=== PATIENT | female | born 1970 | race African-American/Black ===

== ENCOUNTER 2024-05-24 21:14 | Emergency (ER) | payer SELFPAY ==
[2024-05-24 21:17] VITALS: BP 128/71; PULSE 98; RESP 20; TEMP 37.2; O2SAT 97; BMI 31.5
== END 2024-05-25 00:59 | disposition left against medical advice (07) ==
PROVIDERS: Emergency Provider Emergency Medicine
DX: T63.301A Toxic effect of unspecified spider venom, accidental (unintentional), initial encounter (principal); Y92.9 Unspecified place or not applicable; Z53.21 Procedure and treatment not carried out due to patient leaving prior to being seen by health care provider
CPT/HCPCS: 99281

== ENCOUNTER 2024-10-05 17:58 | Emergency (ER) | payer MEDICAID, SELFPAY ==
[2024-10-05 18:19] VITALS: BP 151/101; PULSE 81; RESP 18; TEMP 36.9; O2SAT 98; BMI 30.4
--- NOTE | 2024-10-05 18:19 | ED_ITS ---
HPI - Dental/Oral General Chief complaint: Dental/Oral Stated complaint: ?Dental abscess Time Seen by Provider: 10/05/24 18:27 Source: patient Mode of arrival: ambulatory Limitations: no limitations History of Present Illness ED Provider: Jennifer Daly PA-C HPI Narrative: 54-year-old female presents the ER for evaluation of right upper dental pain and swelling that has been worsening for the last 4 or 5 days. Pain improves it is ibuprofen, she endorses taking more than she should have. She reports that swelling in the right side of her face has worsened. She has no local dental care, no health insurance. She bought antibiotics and a bow day on the street and took 2 doses. she is able to open and close her mouth without issue. no neck swelling. no fevers. MD Complaint: tooth pain Location: Tooth # (1&2) Onset (ago): day(s) Duration: constant Severity: moderate Relieving factors: NSAIDs Exacerbating factors: chewing Context: history of dental caries and poor dental care Associated symptoms: gum swelling and ear pain Treatment prior to arrival: oral analgesic Related Data Previous Rx's ?Medication ?Instructions ?Recorded amoxicillin 875 mg-potassium 1 tab PO BID #20 tabs 10/05/24 clavulanate 125 mg tablet tramadol 50 mg tablet 50 mg PO Q8H PRN severe pain 10/05/24 (scale score 7-10) #6 tabs Allergies Allergy/AdvReac Type Severity Reaction Status Date / Time No Known Allergies Allergy Verified 10/05/24 18:21 Review of Systems Review of Systems: Yes all other systems are reviewed and are negative PMFSH Social History Social History Advance Directives: No Advance Directives Information Provided: Yes Do you have a plan to hurt others: No Plan Physical Exam Vital Signs: Vital Signs: Last Vital Signs Temp 98.4 F 10/05/24 18:56 Pulse 81 10/05/24 18:56 Resp 18 10/05/24 18:56 BP 151/101 H 10/05/24 18:56 Pulse Ox 98 10/05/24 18:56 O2 Del Method Room Air 10/05/24 18:56 BMI result Body Mass Index 30.4 Appearance: Alert. Oriented X3. No acute distress. HEENT: mild right sided facial swelling in the maxillary area. no trismus. poor dentition. few missing teeth. right upper molars are tender to touch with associated gingival discoloration and tenderness, no fluctuance CVS: Normal heart rate and rhythm. Pulses normal. Respiratory: No respiratory distress. Skin: Skin warm and dry. Normal skin color. Normal skin turgor. No rashes. Extremities: normal inspection, no gross joint swelling Neuro: Oriented X 3. grossly normal, nonfocal Medical Decision Making Medical Decision Making MDM Narrative: 54 yo female presenting with right upper dental pain for the last several days. no trauma. no drainable abscess on exam will start augmentin and pain control. expressed to patient the importance of dental follow up. we also discussed return precautions. stable for d/c home Differential Diagnosis Differential Diagnoses: The differential diagnosis associated with the presentat ion includes toothache, dental abscess, dental decay, dental caries, ludwigs angina Tests considered The following testing was considered but not selected: considered CT scan of the facial bones Prescription Management I considered prescription management with: Pain Medication and Antibiotic Chronic Conditions Patient?s care impacted by: Other (poor dental care) Social Determinants Patient?s care significantly limited by Social Determinants of Health including: Other Social Determinant of Health (no health insurance) Critical Care Time Critical Care Time Critical Care Time: No Discharge Plan Discharge Clinical Impression: Toothache Patient Disposition: Home, Self-Care Instructions: Toothache (ED) Additional Instructions: Take the prescribed antibiotics as directed, complete the entire course and do not miss any doses Continue tylenol around the clock for pain Take the prescribed narcotic pain medication as needed for severe pain only. Do not drive after taking this medication. Use cold compresses on the face as needed for pain and swelling You can try over the counter Orajel or clove oil to the area to help with pain You can also try taking a hot black tea bag to the area, this will help with inflammation Follow up with your dentist as soon as possible If you develop new or worsening symptoms call 911 or come back to the ER for further evaluation. Call or visit any of the clinics below to establish with a dentist: [facility] [address] [place] [address] [facility] [address] [place] [address] [facility] [address] [facility], [address] Jani Garcia [address] [place] [address] [facility] [id number] [facility] [address] [place], [place] [id number] [place] [address] [place] [address] Prescriptions: New amoxicillin-pot clavulanate 875-125 mg tablet 1 tab PO BID Qty: 20 0RF tramadol 50 mg tablet 50 mg PO Q8H PRN (Reason: severe pain (scale score 7-10)) Qty: 6 0RF Stand Alone Forms: Work/School Release Interventions: ED Discharge Assessment Last Done: 10/05/24 18:56 Discharge Date/Time: 10/05/24 19:16 Print Language: Tajik
[2024-10-05 18:56] VITALS: BP 151/101; PULSE 81; RESP 18; TEMP 36.9; O2SAT 98
== END 2024-10-05 19:16 | disposition home or self-care (01) ==
LOC: HO.ED 19:07
PROVIDERS: Emergency Provider Emergency Medicine Emergency Medical Services
DX: K08.89 Other specified disorders of teeth and supporting structures (principal); K02.9 Dental caries, unspecified
CPT/HCPCS: 99282; 99283

== ENCOUNTER 2025-02-20 19:20 | Emergency (ER) | payer MEDICAID, SELFPAY ==
--- NOTE | ~2025-02-20 | XR_ITS ---
CLINICAL HISTORY: pain 3 views lumbar spine Comparison: None Findings: Normal heights of 5 lumbar vertebrae. No significant listhesis. Degenerative disc changes include lumbosacral disc height loss. L4 and L5 pars are partly obscured without definite lysis. Small ossicles and ligament calcifications noted including adjacent to L3-L4 and L4-L5 facets. Multifocal facet arthropathy is present and greater than expected for age. Moderate to severe stool burden noted in the [id number]. IMPRESSION: 1. No acute compression fracture of the 5 lumbar vertebrae. 2. Degenerative changes include facet arthropathy. This document has been electronically signed by: Chele Andersen MD on 02/20/2025 20:37:19
[2025-02-20 19:44] VITALS: BP 114/71; PULSE 77; RESP 16; TEMP 36.8; O2SAT 98; BMI 30.2
--- NOTE | 2025-02-20 19:45 | ED.GENADULT ---
HPI - General Adult General Chief complaint: Back Pain/Injury Stated complaint: lower back pain Time Seen by Provider: 02/20/25 21:03 Source: patient Mode of arrival: ambulatory Limitations: no limitations History of Present Illness ED Provider: HPI narrative: Patient with lower back pain for several days got worse 3 days ago while she was working pain is localized to lower lumbar area with no paresthesia in the lower extremities no bladder or bowel involvement no direct injury or fall Related Data Previous Rx's ?Medication ?Instructions ?Recorded amoxicillin 875 mg-potassium 1 tab PO BID #20 tabs 10/05/24 clavulanate 125 mg tablet tramadol 50 mg tablet 50 mg PO Q8H PRN severe pain 10/05/24 (scale score 7-10) #6 tabs cyclobenzaprine 10 mg tablet 10 mg PO Q8H #20 tabs 02/20/25 Allergies Allergy/AdvReac Type Severity Reaction Status Date / Time No Known Allergies Allergy Verified 02/20/25 19:47 Review of Systems Review of Systems: Yes all other systems are reviewed and are negative [facility] Social History Social History Smoked in Last 30 Days: No Use of substances other than those prescribed or required for medical reasons: Yes Substance Use Type: Marijuana Advance Directives: No Advance Directives Information Provided: Yes Do you have a plan to hurt others: No Plan Patient : No Physical Exam ED Vital Signs: Vital Signs - 24 hr 02/20/25 19:44 02/20/25 20:00 02/20/25 21:32 Temperature 98.2 F 97.8 F 97.8 F Pulse Rate 77 80 82 Respiratory Rate 16 16 16 Blood Pressure 114/71 111/76 115/76 Pulse Oximetry 98 98 99 Oxygen Delivery Method Room Air Room Air Room Air BMI result Body Mass Index 30.2 Appearance: Alert. Oriented X3. No acute distress. ENT: Pharynx normal. Oral Mucosa moist Neck: Normal inspection. Neck supple. CVS: Normal heart rate and rhythm. Pulses normal. Respiratory: No respiratory distress. Equal air entry bilateral, no wheezing/rales/rhonchi Abdomen: Soft and nontender. Bowel sounds are present, no mass palpable, no CVA tenderness Skin: Skin warm and dry. Normal skin color. Normal skin turgor. Extremities: No lower extremity edema. No calf tenderness back: Diffuse lumbar paraspinal tenderness no midline tenderness SLR negative bilateral patient ambulatory in steady gait Neuro: Oriented X 3. No motor deficit. No sensory deficit.No cerebellar signs , cranial nerves II-XII intact Course Course Course Narrative: RME performed by Terri Miller PA-C. Patient is a 54 year old assigned female at presenting to the emergency department with low back pain. Patient states that she has been having low back pain for a month and she is getting adjusted by a chiropractor but it continues to hurt. Detailed physical exam and review of systems are deferred to the vice president of finance. Imaging ordered. Patient placed back in the waiting room pending room availability and results. Medications Administered Discontinued Medications Generic Name Dose Route Start Last Admin Trade Name Freq PRN Reason Stop Dose Admin Cyclobenzaprine HCl 10 mg 02/20/25 21:16 02/20/25 21:28 Cyclobenzaprine Hcl 10 Mg Tablet PO 02/20/25 21:17 10 mg ONCE ONE Administration Medical Decision Making Medical Decision Making [facility] Narrative: Patient with low back pain for some time got worse after worsening of the weekend x-ray of the lumbar spine negative for acute patient ambulatory in steady gait with give ibuprofen muscle relaxant Independent Interpretation I performed an independent interpretation of an: Plain X-Ray Interpretation: No acute Discharge Plan Discharge Clinical Impression: Strain of lumbar region Patient Disposition: Home, Self-Care Instructions: Low Back Strain (ED) Additional Instructions: Rest at home Take ibuprofen for pain Muscle relaxant as prescribed Follow up with your PCP/chiropractor Prescriptions: New cyclobenzaprine 10 mg tablet 10 mg PO Q8H Qty: 20 0RF No Action amoxicillin-pot clavulanate 875-125 mg tablet 1 tab PO BID Qty: 20 0RF tramadol 50 mg tablet 50 mg PO Q8H PRN (Reason: severe pain (scale score 7-10)) Qty: 6 0RF Stand Alone Forms: Work/School Release Interventions: ED Discharge Assessment Last Done: 02/20/25 21:32 Discharge Date/Time: 02/20/25 21:56 Print Language: Belarusian
[2025-02-20 20:00] VITALS: BP 111/76; PULSE 80; RESP 16; TEMP 36.6; O2SAT 98
--- OUTSIDE RECORDS SUMMARY | 2025-02-20 20:57 | XMS_ITS | Clinical Summary ---
Author Organization [employer] [facility] Address [address] [place] [address] Care Team Providers Care Customer Loyalty Representative Name Role Phone Spring Sotomayor DO Primary Care Provider [phone] Allergies No known active allergies Medications No known medications Active Problems Problem Noted Date Diagnosed Date BMI 29.0-29.9,adult 12/03/2024 Encounters Date Type Department Care Team Description 01/28/2025 Population Health Risk Score [facility] (C3) Department [address] [id number] Provider, Population Health Generic 12/03/2024 9:20 AM EST Office Visit [facility] [address] [place] [address] Spring Sotomayor DO Impacted cerumen of both ears (Primary Dx); Sensation of plugged ear on left side; BMI 29.0-29.9,adult 12/03/2024 Travel from Last 3 Months Social History Tobacco Use Types Packs/Day Years Used Date Smoking Tobacco: Never Passive Smoke Exposure: Never Smokeless Tobacco: Never Tobacco Cessation:Counseling Given: Not Answered Comments Unknown Sex and Gender Information Value Date Recorded Sex Assigned at Female 12/03/2024 9:01 AM EST Legal Sex Female 11:36 AM EST Gender Identity Female 12/03/2024 9:01 AM EST Sexual Orientation Don't know 12/03/2024 9: 01 AM EST Last Filed Vital Signs Vital Sign Reading Time Taken Comments Blood Pressure 140/81 12/03/2024 9:15 AM EST Pulse 82 12/03/2024 9:15 AM EST Temperature 36.8 ??C (98.2 ??F) 12/03/2024 9:15 AM ES T Respiratory Rate 18 12/03/2024 9:15 AM EST Oxygen Saturation 99% 12/03/2024 9:15 AM EST Inhaled Oxygen Concentration - - Weight 79.8 kg (176 lb) 12/03/2024 9:15 AM EST Height 165.1 cm (5' 5 ) 12/03/2024 9:15 AM EST Body Mass Index 29.29 12/03/2024 9:15 AM EST Plan of Treatment Health Maintenance Due Date Last Done Comments CT Colonography 1970 Colonoscopy 1970 Colorectal Cancer Screening 1970 Depression Screening 1970 FIT DNA/Cologuard 1970 FIT 1970 FOBT 1970 HIV Screening 1970 SDOH Screening 1970 Sigmoidoscopy 1970 Alcohol/Substance Use Screening 1982 Hepatitis C Screening 1988 DTaP/Tdap/Td Vaccines (1 - Tdap) 1989 Hepatitis B Vaccines (1 of 3 - 19+ 3-dose series) 1989 Pap Smear 1991 Cervical Cancer Screening 2000 HPV/Cotest 2000 Mammogram 2010 Pneumococcal Vaccine: 50+ Ye ars (1 of 1 - PCV) 2020 Zoster Vaccines (1 of 2) 2020 COVID-19 Vaccine (1 - 2023-2 5 season) 2024 Influenza Vaccine (#1) 2024 Tobacco Screening 12/03/2025 12/03/2024 RSV Patients and Pa tients Aged 60 years or older (1 - 1-dose 75+ series) 2045 HIB Vaccines Aged Out No longer eligi ble based on patient's age to complete this topic HPV Vaccines Aged Out No longer eligi ble based on patient's age to complete this topic Hepatitis A Vaccines Aged Out No long er eligible based on patient's age to complete this topic IPV Vaccines Aged Out No longer eligi ble based on patient's age to complete this topic Meningococcal Vaccine Aged Out No radha josr eligible based on patient's age to complete this topic Pneumococcal Vaccine: Pediat rics (0 to 5 Years) and At-Risk Patients (6 to 49) Years) Aged Out No longer elig ible based on patient's age to complete this topic RSV under 20 months Aged Out No longe r eligible based on patient's age to complete this topic Rotavirus Vaccines Aged Out No longer eligible based on patient's age to complete this topic Procedures Procedure Name Priority Date/Time Associated Diagnosis Comments TX REMOVAL IMPACTED CERUMEN IRRIGATION/LVG UNILAT Routine 12/03/2024 10:05 AM EST Impacted cerumen of both ears from Last 3 Months Results * TX REMOVAL IMPACTED CERUMEN IRRIGATION/LVG UNILAT (12/03/2024 10:05 AM EST) Narrative Shalini Og RN - 12/03/2024 10:05 AM EST Shalini Og RN ? 12/03/2024 12:29 PM Ear Cerumen Removal Date/Time: 12/03/2024 10:05 AM Performed by: Shalini Og RN Authorized by: Spring Sotomayor DO ?? Consent: ??Consent obtained: ??Verbal ??Consent given by: ??Patient ??Risks, benefits, and alternatives were discussed: yes ?Risks discussed: ??Incomplete removal, dizziness and pain ??Alternatives discussed: ??Alternative treatment [place] protocol: ??Procedure explained and questions answered to patient or proxy's satisfaction: yes ?Immediately prior to procedure, a time out was called: yes ?Patient identity confirmed: ??Verbally with patient Procedure details: ??Location: ??L ear and R ear ??Procedure type: irrigation ?Procedure outcomes: cerumen removed ?? Post-procedure details: ??Inspection: ??TM intact and ear canal clear ??Hearing quality: ??Normal ??Procedure completion: ??Tolerated well, no immediate complications us Spring Sotomayor DO IN CLINIC/BEDSIDE ORDERABLES Final Result from Last 3 Months [facility] Care Teams Customer Loyalty Representative Relationship Specialty Start Date End Date Spring Sotomayor DO [address] [place] [id number] PCP - General Family Medicine 12/03/24
[2025-02-20] MEDS: Cyclobenzaprine HCl 10 MG TABLET PO (21:28)
[2025-02-20 21:32] VITALS: BP 115/76; PULSE 82; RESP 16; TEMP 36.6; O2SAT 99
== END 2025-02-20 21:56 | disposition home or self-care (01) ==
PROVIDERS: Emergency Provider Internal Medicine
DX: S39.012A Strain of muscle, fascia and tendon of lower back, initial encounter (principal); X50.0XXA Overexertion from strenuous movement or load, initial encounter; Y93.89 Activity, other specified; M54.50 Low back pain, unspecified; Y92.59 Other trade areas as the place of occurrence of the external cause; Y99.0 Civilian activity done for income or pay
CPT/HCPCS: 72100; 99283; 99284

== ENCOUNTER → 2025-02-20 19:46 | Outpatient (BNV) | payer MEDICAID, SELFPAY | PROVIDERS: Emergency Provider Internal Medicine; Visit Provider Radiology Neuroradiology | DX: M51.360 Other intervertebral disc degeneration, lumbar region with discogenic back pain only (principal) | CPT/HCPCS: 72100 ==

== ENCOUNTER 2025-04-15 16:48 | Emergency (ER) | payer MEDICAID, SELFPAY ==
--- NOTE | ~2025-04-15 | XR_ITS ---
CLINICAL HISTORY: pain fracture? 3 view right ankle Comparison: None Findings: There is cortical irregularity of the distal metaphysis of the fibula. There is no visible fracture line. No dislocation. Symmetric ankle mortise. No significant arthritic change or erosions. No ankle effusion. No radiopaque foreign body. IMPRESSION: Deformity of the distal fibula. A chronic fracture is preferred but an acute fracture is not completely excluded. This document has been electronically signed by: Fanta Jean MD on 04/15/2025 18:36:07
--- NOTE | ~2025-04-15 | XR_ITS ---
CLINICAL HISTORY: foot pain. fracture 3 view right foot Comparison: None Findings: 1 mm chronic bone fragment adjacent to the head of the 1st metatarsal. No acute fracture at the level of the foot. Deformity of the distal fibula. Please see dedicated ankle x-ray report. Mild arthritic change of the 1st metatarsophalangeal joint. A calcaneal spur is present. No ankle effusion. No radiopaque foreign body. IMPRESSION: 1. No acute findings. This document has been electronically signed by: Fanta Jean MD on 04/15/2025 18:37:02
[2025-04-15 16:53] VITALS: BP 126/81; PULSE 86; RESP 18; TEMP 36.5; O2SAT 98; BMI 30.4
--- NOTE | 2025-04-15 17:06 | ED.GENADULT ---
HPI - General Adult General Chief complaint: Extremity Injury, Lower Stated complaint: right foot injury; left leg injury Time Seen by Provider: 04/15/25 17:38 Source: patient Mode of arrival: ambulatory Limitations: no limitations History of Present Illness ED Provider: Carley Courtney PA-C HPI narrative: 54-year-old female without significant medical history presents to the ED today due to right foot pain. Patient states that [place] [employer] [place] when her foot got caught in between the handicap ramp and the floor of the bus. She is able to weight bear but is having pain the proximal dorsal foot and medial malleolus. Did not fall, no headstrike or LOC She denies chest pain, shortness of breath, nausea, vomiting MD complaint: R foot pain Onset (ago): hour(s) (1) Location: lower extremity (Right foot) Radiation: non-radiation Severity: moderate Quality: aching Pain Consistency: constant Relieving factors: none Exacerbating factors: none Associated symptoms: denies other symptoms Treatments prior to arrival: none Related Data Previous Rx's ?Medication ?Instructions ?Recorded amoxicillin 875 mg-potassium 1 tab PO BID #20 tabs 10/05/24 clavulanate 125 mg tablet tramadol 50 mg tablet 50 mg PO Q8H PRN severe pain 10/05/24 (scale score 7-10) #6 tabs cyclobenzaprine 10 mg tablet 10 mg PO Q8H #20 tabs 02/20/25 ibuprofen 600 mg tablet 600 mg PO Q8H PRN pain #30 tabs 04/15/25 Allergies Allergy/AdvReac Type Severity Reaction Status Date / Time No Known Allergies Allergy Verified 04/15/25 16:56 Review of Systems Review of Systems: CONST: Negative for fever, body aches and chills. HENT: Negative for neck pain/stiffness, headache, congestion, sore throat, swelling. EYES: Negative for discharge/pain or vision changes. RESP: Negative for cough/hemoptysis and shortness of breath. CV: Negative chest pain, difficulty breathing, palpitations. ABD: Negative pain, nausea, vomiting. : Negative increase frequency, dysuria, blood in urine or stool. MUSC: Negative for muscle aches, edema. SKIN: Negative rash, lesions/sores. NEURO: Negative headache, dizziness, weakness. Extremities: POS R foot pain PMFSH Past Medical History Attestation statement: The following information was validated with the patient. Source: old records reviewed Social History Social History Use of substances other than those prescribed or required for medical reasons: No Substance Use Type: Marijuana Advance Directives: No Advance Directives Information Provided: No Do you have a plan to hurt others: No Plan Physical Exam ED Vital Signs: Vital Signs - 24 hr 04/15/25 16:53 Temperature 97.7 F Pulse Rate 86 Respiratory Rate 18 Blood Pressure 126/81 Pulse Oximetry 98 Oxygen Delivery Method Room Air BMI result Body Mass Index 30.4 GENERAL APPEARANCE: ?AxOx4, generally well-appearing, no acute distress. HEENT: ?NC, AT. MMM. EOMI, clear conjunctiva, oropharynx clear. HEART:? Normal rate and regular rhythm, normal S1/S2, no m/r/g LUNGS:? CTAB, moving air well. No crackles or wheezes are heard. EXTREMITIES: ?Without cyanosis, clubbing or edema. R foot TTP over medial malleolus and proximal L dorsum mild edema. No abrasions, lacerations. L medial tibialis with 2cm skin abrasion. No active bleeding. NEUROLOGICAL: ?Grossly nonfocal. Alert and oriented, moving all 4 extremities. Observed to ambulate with normal gait. Skin: ?Warm and dry without any rash. Course Course Course Narrative: RME: 54-year-old female presents to ED for right foot pain after right foot was pain on that our [employer] [place] [place] ramp. Patient denies any head trauma fell to the ground. Positive for foot tenderness on palpation. X-ray ordered Medical Decision Making Medical Decision Making MDM Narrative: 54-year-old female without significant medical history presents to the ED today due to right foot pain. Patient states that she was [place] [employer] [place] when her foot got caught in between the handicap ramp and the floor of the bus. She is able to weight bear but is having pain the proximal dorsal foot and medial malleolus. Did not fall, no headstrike or LOC VSS, no acute distress, nontoxic appearing. On physical exam patient TTP over proximal dorsum of right foot and medial malleolus. No TTP over lateral malleolus or lateral aspect of the foot. Patient states she had R ankle fracture in 2008. Able to weight bear compartments are soft. Sensation intact. 2+ DP pulses Full ROM but painful when inverting. Course 18:57- XR r foot reveal no acute fracture or dislocation. XR r ankle reveals a deformity of the distal fibula. A chronic fracture is preferred but an acute fracture is not completely excluded. Consult placed to Mike Rainey PA-C who recommended to place in splint if suspected acute fracture, however I have low suspicion for acute fracture since she has no tenderness over the lateral malleolus or lateral aspect of the foot. However he said if no suspicion for fracture it is okay to place in walking boot with crutches and follow-up. Patient was counseled on her x-ray findings and she is in agreement with walking boot and crutches with strict follow up instructions. Differential Diagnosis Differential Diagnoses: The differential diagnosis associated with the presentation includes Crush injury Ankle fracture Foot fracture Ankle sprain Contusion Admission/Observation Consideration of admission/observation: Escalation of care including admission/observation considered Lab Data MDM Lab Attestation statement: I reviewed the patient's lab results. Independent Interpretation I performed an independent interpretation of an: Plain X-Ray Interpretation: I independently interpreted the x-ray of right foot and right ankle. Radiology Impression Discussion of test interpretation with radiology: I have reviewed the radiologist's reading. Radiologist Impression: R foot XR CLINICAL HISTORY: foot pain. fracture 3 view right foot Comparison: None Findings: 1 mm chronic bone fragment adjacent to the head of the 1st metatarsal. No acute fracture at the level of the foot. Deformity of the distal fibula. Please see dedicated ankle x-ray report. Mild arthritic change of the 1st metatarsophalangeal joint. A calcaneal spur is present. No ankle effusion. No radiopaque foreign body. IMPRESSION: 1. No acute findings. This document has been electronically signed by: Fanta Jean MD on 04/15/2025 18:37:02 Dictated By: Fanta Jean MD Signed By: <Electronically signed by Fanta Jean MD in OV> XR R ankle CLINICAL HISTORY: pain fracture? 3 view right ankle Comparison: None Findings: There is cortical irregularity of the distal metaphysis of the fibula. There is no visible fracture line. No dislocation. Symmetric ankle mortise. No significant arthritic change or erosions. No ankle effusion. No radiopaque foreign body. IMPRESSION: Deformity of the distal fibula. A chronic fracture is preferred but an acute fracture is not completely excluded. This document has been electronically signed by: Fanta Jean MD on 04/15/2025 18:36:07 Dictated By: Fanta Jean MD Signed By: <Electronically signed by Fanta Jean MD in OV> 04/15/25 [id number] External Record Review External record reviewed: Inpatient record, Office record and Outpatient record Discharge Plan Discharge Clinical Impression: Ankle sprain and strain Patient Disposition: Home, Self-Care Instructions: Ankle Sprain (ED), P.R.I.C.E. Treatment (ED), Walking Boot (ED) Additional Instructions: You were evaluated in the ED today due to injury of your right foot after getting it pinned in the handicap ramp on [place] [employer]. Your physical exam showed tenderness over your right ankle and top of the foot. The limb was soft your sensations are intact your pulses are intact. The x-ray of your right foot did not show any fracture or dislocation. The x-ray of your right ankle showed an old fracture. We will place you in a tall walking boot to protect the ankle and crutches to use while having pain with weight-bearing. You were encouraged to follow up with [facility] orth[place]. You need to call the office to make an appointment. You can alternate Tylenol and Motrin every 6 hours for pain management. You can ice the affected area for 15 minute increments by wrapping ice and a towel. Elevate the leg above the heart to help with swelling. Please return to the emergency department if you experience worsening pain, loss of sensation, inability to weightbear or walk, increased weakness of the limb, increased tightness of the limb, or any other new or concerning symptoms. Prescriptions: New ibuprofen 600 mg tablet 600 mg PO Q8H PRN (Reason: pain) Qty: 30 0RF No Action amoxicillin-pot clavulanate 875-125 mg tablet 1 tab PO BID Qty: 20 0RF tramadol 50 mg tablet 50 mg PO Q8H PRN (Reason: severe pain (scale score 7-10)) Qty: 6 0RF cyclobenzaprine 10 mg tablet 10 mg PO Q8H Qty: 20 0RF Referrals: [facility] Surgeons [Provider Group] Interventions: ED Discharge Assessment Last Done: 04/15/25 19:31 Discharge Date/Time: 04/15/25 20:07 Print Language: [place]ican
[2025-04-15 19:31] VITALS: BP 126/81; PULSE 86; RESP 18; TEMP 36.5; O2SAT 98
[2025-04-15 19:56] VITALS: BP 122/73; PULSE 74; RESP 16; TEMP 36.8; O2SAT 97
--- NOTE | 2025-04-15 19:57 | MHC.EDTECH ---
This Pct assumed care of Patient at 1845 ,Vitals taken ,Patient was given crutches and was shown how to use them ,Also carmen wrap and walking boot apply to Patient right foot ,Per Provider Order .
== END 2025-04-15 20:07 | disposition home or self-care (01) ==
PROVIDERS: Emergency Provider Emergency Medicine
DX: M79.671 Pain in right foot (principal); S93.401A Sprain of unspecified ligament of right ankle, initial encounter; V78.4XXA Person boarding or alighting from bus injured in noncollision transport accident, initial encounter; Y93.89 Activity, other specified; Y99.9 Unspecified external cause status
CPT/HCPCS: 73610; 73630; 99283; 99284

== ENCOUNTER → 2025-04-15 17:07 | Outpatient (BNV) | payer MEDICAID, SELFPAY | PROVIDERS: Emergency Provider Emergency Medicine; Visit Provider Radiology Diagnostic Radiology | DX: S99.911A Unspecified injury of right ankle, initial encounter (principal); M79.671 Pain in right foot | CPT/HCPCS: 73610; 73630 ==

== ENCOUNTER 2025-05-18 14:46 | Outpatient (REF) | payer MEDICAID, SELFPAY ==
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
[2025-05-18 16:04] LABS: MANUAL DIFF FLAG NO
[2025-05-18 16:11] LABS: Hematocrit 39.0 % (37.0-47.0); Hemoglobin 12.9 g/dl (12.0-16.0); Imm Gran Abs Auto 0.01 X10*3/uL (0.00-0.03); Imm Gran Pct Auto 0.2 % (0.0-0.4); Lymphocytes Absolute Auto 1.9 X10*3/uL (1.2-4.9); Mean Corpuscular HGB Conc 33.1 g/dl (31.0-35.0); Mean Corpuscular Hemoglobin 29.7 pg (27.0-33.0); Mean Corpuscular Volume 89.9 fL (80.0-98.0); NRBC Abs Auto 0.000 X10*3/uL (0.0-0.012); NRBC Pct Auto 0.0 /100WBC (0.0-0.2); Platelet Count 259 X10*3/uL (160-400); Red Blood Count 4.34 X10*6/uL (4.20-5.50); White Blood Count 4.4 X10*3/uL (4.8-10.8)
[2025-05-18 16:32] LABS: Alanine Aminotransferase 18 U/L (0-31); Albumin Level 4.5 g/dL (3.5-5.0); Alkaline Phosphatase 77 U/L (39-117); Anion Gap 11 (12-20); Aspartate Amino Transferase 28 U/L (5-31); Blood Urea Nitrogen 14 mg/dL (9-16); Calcium 9.2 mg/dL (8.4-10.2); Carbon Dioxide 28 mmol/L (22-29); Chloride 106 mmol/L (96-108); Estimated Glomerular Filt Rate > 60; Potassium 4.3 mmol/L (3.3-5.1); Sodium 141 mmol/L (135-145); Total Protein 6.9 g/dL (6.5-8.0)
[2025-05-19 06:53] LABS: Follicle Stimulating Hormone 50.1 mIU/mL
== END 2025-05-18 14:47 | disposition home or self-care (01) ==
LOC: HO.HHCL 14:46
PROVIDERS: PCP Internal Medicine Geriatric Medicine; Visit Provider Internal Medicine Geriatric Medicine
DX: N95.1 Menopausal and female climacteric states (principal)
CPT/HCPCS: 36415; 80053; 83001; 83002; 84443; 85025